=== PATIENT | female | born 1990 | race Caucasian/White ===

== ENCOUNTER 2017-06-27 05:31 | Emergency (ER) | payer OTHER ==
[~2017-06-27] VITALS: Ht 167.6 cm; Wt 63.5 kg
[2017-06-27] MEDS ORDERED: methylPREDNISolone SOD SUCC PF 125 MG/2 ML VIAL. ONE (05:39)
[2017-06-27] MEDS ORDERED: diphenhydrAMINE 50 MG/ML VIAL ONE (05:39)
[2017-06-27] MEDS ORDERED: FAMOTIDINE 20 MG/2 ML VIAL ONE (05:40)
[2017-06-27] MEDS ORDERED: DIPH25CA58 PO (05:50)
[2017-06-27] MEDS ORDERED: PRED50TA PO (05:50)
[2017-06-27] MEDS ORDERED: FAMO-63 PO (05:50)
--- NOTE | 2017-06-27 05:51 | PHYS DOC ---
Adult General Chief Complaint Chief Complaint: ALLERGIC REACTION HPI HPI Patient is a 27-year-old female who presents here today secondary to allergic reaction. Patient's highly suspicious of the Carafate that she started yesterday as the culprit. Patient reports that she was started on Carafate yesterday and took her first dose in the morning and shortly thereafter she started experiencing hives. Patient reports that she was given Benadryl with improvement in her rash yesterday and stopped taking any more Carafate throughout the day. Patient reports this morning she woke up and she noticed increased rash throughout her entire body that had worsened throughout the night. Patient reports some shortness of breath with some difficulty swallowing. Patient denies any other symptomatology. Patient denies any nausea vomiting diarrhea abdominal cramping. Patient has any fevers shakes chills. Patient reports she does have a history of allergies to penicillin in the past however she is nursing Carafate in the past. Review of systems: Constitutional: Denies fever or chills Eyes: Denies change in visual acuity, redness, or eye pain HENT: Denies nasal congestion or sore throat All other review systems are negative except as documented in the history of present illness portion. Physical exam: Constitutional: Well developed, well nourished, no acute distress, non-toxic appearance. HENT: Normocephalic, atraumatic, bilateral external ears normal, nose normal. Eyes: EOMI, conjunctiva normal, no discharge. Neck: Normal range of motion, no tenderness, supple, no stridor. Cardiovascular:Heart rate regular rhythm Lungs & Thorax: Bilateral breath sounds clear to auscultation no respiratory distress Abdomen: Bowel sounds normal, soft, no tenderness, no masses, no pulsatile masses. Skin: Warm, dry, no erythema, no rash. Back: No tenderness, no CVA tenderness. Extremities: No tenderness, no cyanosis, no clubbing, ROM intact, no edema. Neurologic: Alert and oriented X 3, normal motor function, normal sensory function, no focal deficits noted. Psychologic: Affect normal, judgement normal, mood normal. Patient's ER physical exam is significant for: 1. Diffuse hives throughout her body including her back chest face neck arms. 2. Lungs clear without any audible wheezing. 3. No stridor. 4. Uvula appears normal. No edema in the oropharynx. No edema to tongue. 5. Normal vital signs Assessment and plan This is a 27-year-old female who presents to the ER today secondary to allergic reaction to Carafate. Patient is clinically and hemodynamically stable at this time. Patient has stopped taking the Carafate for approximately 24 hours at this time however the rash has gotten worse. Patient reports that she self medicated with Benadryl yesterday however she is still experiencing worsening rash. Patient is currently hemodynamically stable without any evidence of cardiovascular or respiratory compromise. Patient will be treated with IV Benadryl, Pepcid, Solu-Medrol and monitored in the ED for signs or symptoms of worsening rash/airway compromise. If patient remains stable and her rash improves she'll be discharged home with Pepcid, prednisone, Benadryl and instructed to continue to not take Carafate and to make sure she lists it as a source of allergy. Case was signed over to Dr. Lee for reevaluation and disposition. Current Medications Current Medications Current Medications Medications (Trade) Dose Ordered Sig/Yane Start Time Stop Time Status Last Admin Dose Admin Diphenhydramine HCl (Benadryl) 50 mg STK-MED ONCE 06/27/17 05:39 06/27/17 05:40 DC Famotidine (Pepcid Vial) 20 mg STK-MED ONCE 06/27/17 05:40 06/27/17 05:41 DC Methylprednisolone Sodium Succinate (SOLU-Medrol 125MG VIAL) 125 mg STK-MED ONCE 06/27/17 05:39 06/27/17 05:40 DC Physical Exam Physical Exam General: No distress noted Skin: Flushing has resolved Pulm: CTAB Card: RRR good peripheral pulses GI: No abdominal TTP Current Patient Data Vital Signs Vital Signs Date Time Temp Pulse Resp B/P (MAP) Pulse Ox O2 Delivery O2 Flow Rate FiO2 06/27/17 06:21 74 16 110/61 (77) 100 Room Air 06/27/17 05:35 98.1 90 18 100 Room Air EKG EKG [] Radiology/Procedures Radiology/Procedures [] Course & Med Decision Making Course & Med Decision Making Pertinent Labs and Imaging studies reviewed. (See chart for details) Majo did show moderate improvement. She did not have flushing noted. She was breathing without difficulty. She did not appear drowsy or sudated. Chapo Disclaimer Pauletteon Disclaimer This electronic medical record was generated, in whole or in part, using a voice recognition dictation system. Departure Departure: Impression: Primary Impression: Drug allergy Disposition: 01 HOME, SELF-CARE Condition: IMPROVED Patient Instructions: Drug Allergy Additional Instructions: It appears that you are allergic to the Carafate thank you have been taking. As you are currently doing, please stop taking the Carafate and make sure that all your healthcare providers noted that you have an allergy to Carafate. Scripts Prednisone (PREDNISONE) 50 Mg Tablet 1 TAB PO DAILY, #5 TAB Prov: NAKITA ROSADO MD 06/27/17 Famotidine (PEPCID) 20 Mg Tablet 1 TAB PO BID, #10 TAB 0 Refills Prov: NAKITA ROSADO MD 06/27/17 Diphenhydramine Hcl (BENADRYL) 25 Mg Capsule 2 CAP PO QHS, #20 CAP 2 Refills Prov: NAKITA ROSADO MD 06/27/17 NAKITA ROSADO MD Jun 27, 2017 05:51 SONYA LEE MD Jun 27, 2017 06:45
[2017-06-27] MEDS ORDERED: diphenhydrAMINE 50 MG/ML VIAL IVP ONE (06:15)
[2017-06-27] MEDS ORDERED: methylPREDNISolone SOD SUCC PF 125 MG/2 ML VIAL. IV ONE (06:15)
[2017-06-27] MEDS ORDERED: IV NORMAL SALINE 1,000ML 1,000 ML IV ONE (06:15)
[2017-06-27] MEDS ORDERED: FAMOTIDINE 20 MG/2 ML VIAL IVP ONE (06:15)
[2017-06-27 07:20] VITALS: BP 108/58
== END 2017-06-27 07:22 | disposition home or self-care (01) ==
LOC: ER 05:31
DX: R21 Rash and other nonspecific skin eruption (principal); R06.02 Shortness of breath; R13.10 Dysphagia, unspecified; T47.1X5A Adverse effect of other antacids and anti-gastric-secretion drugs, initial encounter; Y92.89 Other specified places as the place of occurrence of the external cause
CPT/HCPCS: 96361; 96374; 96375; 99284; J1200; J2930; S0028; J7030

== ENCOUNTER 2019-09-11 09:10 | Emergency (ER) | payer BC, OTHER ==
[~2019-09-11] VITALS: Ht 165.1 cm; Wt 61.0 kg
[~2019-09-11 09:10] MED LIST: DIPH25CA58 PO; FAMO-63 PO; PRED50TA PO
[2019-09-11] MEDS ORDERED: IV NORMAL SALINE 1,000ML 1,000 ML IV SCH (09:38)
[2019-09-11 10:01] LABS: BASO % 1 % (0-3); EOS # 0.1 x10^3/uL (0.0-0.7); EOS % 2 % (0-3); HEMATOCRIT 39.9 % (36.0-47.0); HEMOGLOBIN 14.1 g/dL (12.0-15.5); LYMPH # 1.1 x10^3/uL (1.0-4.8); LYMPH % 21 % (24-48); MEAN CORPUSCULAR HEMOGLOBIN 33 pg (25-35); MEAN CORPUSCULAR HGB CONC 35 g/dL (31-37); MEAN CORPUSCULAR VOLUME 94 fL (79-100); MONO # 0.4 x10^3/uL (0.0-1.1); MONO % 8 % (0-9); NEUT # 3.8 x10^3uL (1.8-7.7); NEUT % 69 % (31-73); PLATELET COUNT 275 x10^3/uL (140-400); RED BLOOD COUNT 4.26 x10^6/uL (3.50-5.40); RED CELL DISTRIBUTION WIDTH 12.5 % (11.5-14.5); WHITE BLOOD COUNT 5.5 x10^3/uL (4.0-11.0)
[2019-09-11 10:08] LABS: CALCIUM 8.9 mg/dL (8.5-10.1); CREATININE 0.9 mg/dL (0.6-1.0); GFR 75.1; POTASSIUM 3.7 mmol/L (3.5-5.1)
[2019-09-11 11:23] VITALS: BP 112/65
[2019-09-11 12:10] LABS: BACTERIA,URINE MOD /HPF (0-FEW); BILIRUBIN,URINE NEG (NEG); CLARITY,URINE CLEAR; COLOR,URINE YELLOW; GLUCOSE,URINE NEG (NEG); NITRITE,URINE NEG (NEG); SQUAMOUS EPITHELIAL CELL,UR MOD /LPF; UROBILINOGEN,URINE 0.2 mg/dL (0.2 mg/dL)
[2019-09-11] MEDS ORDERED: TRAM50TA PO (12:34)
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
== END 2019-09-11 13:09 | disposition home or self-care (01) ==
LOC: ER 09:10
DX: L55.9 Sunburn, unspecified (principal); E86.0 Dehydration; Z88.0 Allergy status to penicillin; Z88.8 Allergy status to other drugs, medicaments and biological substances
CPT/HCPCS: 36415; 80048; 81001; 81025; 85025; 87086; 96360; 99283-25; J7030

== ENCOUNTER 2021-03-22 13:06 | Emergency (ER) | payer OTHER, BC ==
[~2021-03-22] VITALS: Ht 165.1 cm; Wt 61.0 kg
[~2021-03-22 13:06] MED LIST changes: +TRAM50TA PO
[2021-03-22 13:14] VITALS: BP 103/66
[2021-03-22] MEDS ORDERED: IBUPROFEN 600 MG TABLET. PO ONE (13:45)
--- NOTE | 2021-03-22 13:54 | RAD ---
Site ID: [id number] EXAMINATION: XR LT WRIST 3VIEWS. HISTORY: 31 years Female Reason: pain COMPARISON: None. FINDINGS: No fracture, dislocation or radiopaque foreign body. The joint spaces and articular surfaces appea r unremarkable. IMPRESSION: Unremarkable exam. Electronically signed by: Trace Gallardo MD (03/22/2021 1:52 PM) [id number]
--- NOTE | 2021-03-22 13:55 | RAD ---
Site ID: [id number] EXAMINATION: XR ELBOW COMPLETE_LEFT 3+VIEWS, XR FOREARM_LEFT 2 VIEWS. HISTORY: 31 years Female Reason: pain / COMPARISON: None. FINDINGS: No fracture, dislocation or radiopaque foreign body is seen in 2 views of the left forearm and 3 view s of the left elbow. The joint spaces and articular surfaces appear unremarkable. IMPRESSION: Unremarkable exam. Electronically signed by: Trace Gallardo MD (03/22/2021 1:53 PM) [id number]
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
== END 2021-03-22 15:03 | disposition home or self-care (01) ==
LOC: ER 13:06
DX: M79.602 Pain in left arm (principal); M25.522 Pain in left elbow; Z88.0 Allergy status to penicillin; Z88.2 Allergy status to sulfonamides; W51.XXXA Accidental striking against or bumped into by another person, initial encounter; Y93.89 Activity, other specified; Y92.89 Other specified places as the place of occurrence of the external cause; Y99.8 Other external cause status
CPT/HCPCS: 73080; 73090; 73110; 99284